=== PATIENT | male | born 1960 | race Caucasian/White ===

== ENCOUNTER 2018-07-24 15:10 | Inpatient (IN) | payer MEDICAID ==
[~2018-07-24] VITALS: Ht 180.3 cm; Wt 77.8 kg
[2018-07-24 15:21] VITALS: Ht 180.3 cm; Wt 77.8 kg
[2018-07-24 16:02] LABS: BASOPHIL % 0.6 % (0-2); PLATELET COUNT 244 x10^3mcL (130-400); RED CELL DISTRIBUTION WIDTH 13.8 % (11.5-14.5)
[2018-07-24 16:08] LABS: CALCIUM 8.5 mg/dL (8.5-10.1); CARBON DIOXIDE 24.8 mmol/L (21-32); CHLORIDE SERUM 104 mmol/L (98-107); CREATININE SERUM 0.7 mg/dL (0.7-1.3); GFR1 > 60 mL/min; GLUCOSE SERUM 77 mg/dL (74-106); POTASSIUM SERUM 4.5 mmol/L (3.5-5.1); SODIUM SERUM 137 mmol/L (136-145)
[2018-07-24 16:12] LABS: UA SPECIFIC GRAVITY <=1.005 (1.005-1.035); microscopic required? YES; urine erythrocyte NEGATIVE (NEGATIVE)
[2018-07-24 16:19] LABS: AMPHETAMINE QUAL UR NONE DETECTED (See below)
[2018-07-24 16:23] LABS: ALKALINE PHOSPHATASE 90 U/L (46-116); ALT/SGPT 27 U/L (16-63); AMYLASE 46 U/L (25-115); AST/SGOT 21 U/L (15-37); BILIRUBIN TOTAL 0.38 mg/dL (0.20-1.00); CHOLESTEROL 192 mg/dL (<200); LIPASE 142 IU/L (73-393); T4(THYROXINE) 5.7 ug/dL (4.7-13.3); TOTAL PROTEIN, SERUM 6.2 g/dL (6.4-8.2)
[2018-07-24 17:04] LABS: ALBUMIN 2.9 g/dL (3.4-5.0); HDL CHOLESTEROL 67 mg/dL (40-60)
[2018-07-24 19:48] LABS: T3 TOTAL 1.29 ng/mL
[2018-07-24 19:50] LABS: CHOLESTEROL/HDL RATIO 2.8; MAGNESIUM 2.1 mg/dL (1.8-2.4); PHOSPHOROUS 4.6 mg/dL (2.5-4.9)
[2018-07-24 20:00] VITALS: BP 138/92
[2018-07-24 20:04] VITALS: BP 126/84
[2018-07-24 20:24] LABS: FREE T4 0.78 ng/dL (0.76-1.46); FREE THYROXINE INDEX 1.6 ug/dL (1.4-4.5); T4(THYROXINE) 4.8 ug/dL (4.7-13.3)
[2018-07-25 05:44] VITALS: BP 131/86
[2018-07-25 06:58] LABS: CALCIUM 8.7 mg/dL (8.5-10.1); CARBON DIOXIDE 27.2 mmol/L (21-32); CHLORIDE SERUM 105 mmol/L (98-107); CREATININE SERUM 0.7 mg/dL (0.7-1.3); GFR1 > 60 mL/min; GLUCOSE SERUM 113 mg/dL (74-106); PHOSPHOROUS 5.2 mg/dL (2.5-4.9); POTASSIUM SERUM 4.8 mmol/L (3.5-5.1); SODIUM SERUM 139 mmol/L (136-145)
[2018-07-25 07:20] LABS: BASOPHIL % 0.2 % (0-2); PLATELET COUNT 226 x10^3mcL (130-400); RED CELL DISTRIBUTION WIDTH 13.4 % (11.5-14.5)
[2018-07-25 09:18] VITALS: BP 112/72
[2018-07-25 17:24] VITALS: BP 137/89
[2018-07-25 21:17] VITALS: BP 151/94
[2018-07-26 05:10] VITALS: BP 136/74
[2018-07-26 06:06] LABS: PLATELET COUNT 213 x10^3mcL (130-400); RED CELL DISTRIBUTION WIDTH 14.1 % (11.5-14.5)
[2018-07-26 06:15] LABS: BASOPHIL % 0 % (0-2)
[2018-07-26 06:24] LABS: CALCIUM 8.4 mg/dL (8.5-10.1); CARBON DIOXIDE 24.9 mmol/L (21-32); CHLORIDE SERUM 104 mmol/L (98-107); CREATININE SERUM 0.7 mg/dL (0.7-1.3); GFR1 > 60 mL/min; GLUCOSE SERUM 121 mg/dL (74-106); PHOSPHOROUS 4.4 mg/dL (2.5-4.9); POTASSIUM SERUM 4.3 mmol/L (3.5-5.1); SODIUM SERUM 137 mmol/L (136-145)
[2018-07-26 08:30] VITALS: BP 143/78
[2018-07-26 09:28] VITALS: BP 143/78
[2018-07-26 13:59] VITALS: BP 129/84
[2018-07-26 17:12] VITALS: BP 131/83
[2018-07-26 21:50] VITALS: BP 148/94
[2018-07-27 05:28] VITALS: BP 145/83
[2018-07-27 06:52] LABS: BASOPHIL % 0.1 % (0-2); PLATELET COUNT 219 x10^3mcL (130-400); RED CELL DISTRIBUTION WIDTH 14.5 % (11.5-14.5)
[2018-07-27 07:10] LABS: CALCIUM 8.9 mg/dL (8.5-10.1); CARBON DIOXIDE 28.2 mmol/L (21-32); CHLORIDE SERUM 103 mmol/L (98-107); CREATININE SERUM 0.6 mg/dL (0.7-1.3); GFR1 > 60 mL/min; GLUCOSE SERUM 98 mg/dL (74-106); MAGNESIUM 2.1 mg/dL (1.8-2.4); PHOSPHOROUS 4.7 mg/dL (2.5-4.9); POTASSIUM SERUM 4.3 mmol/L (3.5-5.1); SODIUM SERUM 139 mmol/L (136-145)
[2018-07-27 09:37] VITALS: BP 144/87
[2018-07-27 10:00] VITALS: BP 125/82
[2018-07-27] MEDS ORDERED: PULMICORT180 MCG/Ac INH (13:53)
[2018-07-27] MEDS ORDERED: PREDNISONE50 MG PO (13:54)
[2018-07-27 13:59] VITALS: BP 125/82
== END 2018-07-27 16:05 | disposition home or self-care (01) | DRG 140 ==
LOC: ED 15:10 → MU 18:34 → DU 07-25 20:21
PROVIDERS: Emergency Medicine; Family Medicine; Internal Medicine
DX: J44.1 Chronic obstructive pulmonary disease with (acute) exacerbation (principal); E44.0 Moderate protein-calorie malnutrition; R06.03 Acute respiratory distress; F10.129 Alcohol abuse with intoxication, unspecified; R09.02 Hypoxemia; F91.8 Other conduct disorders; Y90.3 Blood alcohol level of 60-79 mg/100 ml; Z68.22 Body mass index [BMI] 22.0-22.9, adult; F17.210 Nicotine dependence, cigarettes, uncomplicated
CPT/HCPCS: 36600; 83880; 84439; 94150; 99406; G0480; J1956; J2920; J2930; J7030; J7613; J7620; Q0092

== ENCOUNTER 2018-07-31 14:17 | Emergency (ER) | payer MEDICAID ==
[~2018-07-31] VITALS: Ht 182.9 cm; Wt 78.0 kg
[~2018-07-31 14:17] MED LIST: PREDNISONE50 MG PO; PULMICORT180 MCG/Ac INH
[2018-07-31 14:27] VITALS: Ht 182.9 cm; Wt 78.0 kg
[2018-07-31 14:48] LABS: BASOPHIL % 0.4 % (0-2); PLATELET COUNT 313 x10^3mcL (130-400); RED CELL DISTRIBUTION WIDTH 13.9 % (11.5-14.5)
[2018-07-31 14:54] LABS: CALCIUM 8.3 mg/dL (8.5-10.1); CHLORIDE SERUM 101 mmol/L (98-107); CREATININE SERUM 0.7 mg/dL (0.7-1.3); GFR1 > 60 mL/min; GLUCOSE SERUM 102 mg/dL (74-106); POTASSIUM SERUM 4.5 mmol/L (3.5-5.1); SODIUM SERUM 136 mmol/L (136-145)
[2018-07-31 15:00] LABS: ALKALINE PHOSPHATASE 73 U/L (46-116); ALT/SGPT 38 U/L (16-63); AST/SGOT 22 U/L (15-37); BILIRUBIN TOTAL 0.4 mg/dL (0.20-1.00); TOTAL PROTEIN, SERUM 6.6 g/dL (6.4-8.2)
[2018-07-31 15:01] LABS: ALBUMIN 3.2 g/dL (3.4-5.0)
[2018-07-31 18:02] VITALS: BP 144/82
== END 2018-07-31 18:38 | disposition home or self-care (01) ==
LOC: ED 14:17
PROVIDERS: Emergency Medicine
DX: J44.1 Chronic obstructive pulmonary disease with (acute) exacerbation (principal); F17.210 Nicotine dependence, cigarettes, uncomplicated; Z88.5 Allergy status to narcotic agent
CPT/HCPCS: 83880; J7030; J7613; J7620; Q0092

== ENCOUNTER 2018-08-28 13:52 | Inpatient (IN) | payer MEDICAID ==
[~2018-08-28] VITALS: Ht 180.3 cm; Wt 78.2 kg
[2018-08-28 15:38] LABS: CALCIUM 8.8 mg/dL (8.5-10.1); CARBON DIOXIDE 31.3 mmol/L (21-32); CHLORIDE SERUM 99 mmol/L (98-107); CREATININE SERUM 0.9 mg/dL (0.7-1.3); GFR1 > 60 mL/min; GLUCOSE SERUM 87 mg/dL (74-106); POTASSIUM SERUM 4.1 mmol/L (3.5-5.1); SODIUM SERUM 134 mmol/L (136-145)
[2018-08-28 15:39] LABS: BASOPHIL % 0.3 % (0-2); PLATELET COUNT 254 x10^3mcL (130-400); RED CELL DISTRIBUTION WIDTH 13.1 % (11.5-14.5)
[2018-08-28 15:45] LABS: ALBUMIN 3.4 g/dL (3.4-5.0); ALKALINE PHOSPHATASE 80 U/L (46-116); ALT/SGPT 22 U/L (16-63); AST/SGOT 17 U/L (15-37); BILIRUBIN TOTAL 0.4 mg/dL (0.20-1.00); HDL CHOLESTEROL 47 mg/dL (40-60); TOTAL PROTEIN, SERUM 6.6 g/dL (6.4-8.2)
[2018-08-28 15:46] LABS: CHOLESTEROL 239 mg/dL (<200)
[2018-08-28 16:44] LABS: microscopic required? NO
[2018-08-28] MEDS ORDERED: PROAIR HFA8.5 GM IH (16:44)
[2018-08-28] MEDS ORDERED: BACLOFEN20 MG PO (16:45)
[2018-08-28 16:55] LABS: UA SPECIFIC GRAVITY <=1.005 (1.005-1.035); urine erythrocyte NEGATIVE (NEGATIVE)
[2018-08-28 16:56] LABS: MAGNESIUM 1.9 mg/dL (1.8-2.4); PHOSPHOROUS 4.5 mg/dL (2.5-4.9)
[2018-08-28 17:03] LABS: T3 TOTAL 1.01 ng/mL
[2018-08-28 17:04] LABS: FREE T4 0.86 ng/dL (0.76-1.46); FREE THYROXINE INDEX 2.1 ug/dL (1.4-4.5); T4(THYROXINE) 6.7 ug/dL (4.7-13.3)
[2018-08-28 17:11] LABS: AMPHETAMINE QUAL UR NONE DETECTED (See below)
[2018-08-28 17:36] VITALS: BP 141/83
[2018-08-28 17:45] VITALS: BP 141/91
[2018-08-28 17:48] VITALS: Ht 180.3 cm; Wt 78.2 kg
[2018-08-28 20:27] VITALS: BP 125/89
[2018-08-29 04:49] VITALS: BP 131/79
[2018-08-29 06:55] LABS: BASOPHIL % 0.2 % (0-2); PLATELET COUNT 229 x10^3mcL (130-400)
[2018-08-29 07:09] LABS: CHLORIDE SERUM 103 mmol/L (98-107); CREATININE SERUM 0.7 mg/dL (0.7-1.3); GFR1 > 60 mL/min; GLUCOSE SERUM 113 mg/dL (74-106); PHOSPHOROUS 5.6 mg/dL (2.5-4.9); POTASSIUM SERUM 4.4 mmol/L (3.5-5.1); SODIUM SERUM 137 mmol/L (136-145)
[2018-08-29 09:26] VITALS: BP 117/74
[2018-08-29 12:58] VITALS: BP 123/78
[2018-08-29 17:09] VITALS: BP 121/77
[2018-08-29 20:45] VITALS: BP 116/73
[2018-08-30 05:46] VITALS: BP 136/85
[2018-08-30 06:14] LABS: CALCIUM 8.5 mg/dL (8.5-10.1); CARBON DIOXIDE 26.4 mmol/L (21-32); CHLORIDE SERUM 103 mmol/L (98-107); CREATININE SERUM 0.7 mg/dL (0.7-1.3); GFR1 > 60 mL/min; GLUCOSE SERUM 103 mg/dL (74-106); PHOSPHOROUS 5.2 mg/dL (2.5-4.9); PLATELET COUNT 232 x10^3mcL (130-400); POTASSIUM SERUM 4.3 mmol/L (3.5-5.1); SODIUM SERUM 136 mmol/L (136-145)
[2018-08-30 06:37] LABS: BASOPHIL % 0 % (0-2)
[2018-08-30 09:19] VITALS: BP 113/72
[2018-08-30 17:56] VITALS: BP 143/87
[2018-08-30 20:53] VITALS: BP 132/78
[2018-08-31 05:46] VITALS: BP 147/82
[2018-08-31 07:07] LABS: CALCIUM 8.1 mg/dL (8.5-10.1); CARBON DIOXIDE 25.4 mmol/L (21-32); CHLORIDE SERUM 104 mmol/L (98-107); CREATININE SERUM 0.7 mg/dL (0.7-1.3); GFR1 > 60 mL/min; GLUCOSE SERUM 85 mg/dL (74-106); MAGNESIUM 1.9 mg/dL (1.8-2.4); PHOSPHOROUS 4.4 mg/dL (2.5-4.9); POTASSIUM SERUM 3.7 mmol/L (3.5-5.1); SODIUM SERUM 139 mmol/L (136-145)
[2018-08-31 07:19] LABS: BASOPHIL % 0.1 % (0-2); PLATELET COUNT 209 x10^3mcL (130-400)
[2018-08-31 09:13] VITALS: BP 117/75
[2018-08-31] MEDS ORDERED: LIPI10 PO (10:25)
[2018-08-31] MEDS ORDERED: ZES5 PO (10:25)
[2018-08-31 10:49] VITALS: BP 117/75
[2018-08-31 14:47] VITALS: BP 135/78
== END 2018-08-31 14:51 | disposition home or self-care (01) | DRG 140 ==
LOC: ED 13:52 → MU 16:02 → DU 16:02 → MU 17:24 → DU 18:00
PROVIDERS: Emergency Medicine; Family Medicine; Internal Medicine
DX: J44.1 Chronic obstructive pulmonary disease with (acute) exacerbation (principal); J96.01 Acute respiratory failure with hypoxia; E87.2 Acidosis; E87.1 Hypo-osmolality and hyponatremia; E78.5 Hyperlipidemia, unspecified; I10 Essential (primary) hypertension; F17.210 Nicotine dependence, cigarettes, uncomplicated; Z68.24 Body mass index [BMI] 24.0-24.9, adult; Z59.0 Homelessness
CPT/HCPCS: 36600; 83880; 84439; 90658; 90732; 94150; 99406; J1644; J1956; J2920; J2930; J7030; J7613; J7620; J7626; J7644; Q0092

== ENCOUNTER 2019-07-05 21:01 | Emergency (ER) | payer BC ==
[~2019-07-05] VITALS: Ht 177.8 cm; Wt 83.9 kg
[~2019-07-05 21:01] MED LIST changes: +BACLOFEN20 MG PO; +LIPI10 PO; +PROAIR HFA8.5 GM IH; +ZES5 PO
[2019-07-05 21:07] VITALS: Ht 177.8 cm; Wt 83.9 kg
[2019-07-05 21:28] VITALS: BP 121/70
== END 2019-07-05 21:28 | disposition left against medical advice (07) ==
LOC: ED 21:01
DX: R06.02 Shortness of breath (principal); J44.9 Chronic obstructive pulmonary disease, unspecified; I10 Essential (primary) hypertension; Z88.5 Allergy status to narcotic agent
CPT/HCPCS: G0480; J1630; J7512

== ENCOUNTER 2019-07-06 02:25 | Inpatient (IN) | payer BC ==
[~2019-07-06] VITALS: Ht 177.8 cm; Wt 85.9 kg
[2019-07-06] VITALS (7 sets, daily range): BP systolic 130–159; BP diastolic 78–108; Ht 177.8 cm; Wt 85.9 kg
--- NOTE | 2019-07-06 02:35 | NUR ---
PT BROUGHT TO ED BY [facility] AND [employer]. PT WAS SEEN EARLIER IN THE ED FOR SOB BUT ELOPED FROM ED WITHOUT TREATMENT. PER MEDICS, AFTER PT LEFT THE ED EARLIER HE WENT TO A LOCAL GAS STATION WHERE HIS SYMPTOMS CONTINUED AND GOT PROGRESSIVELY WORSE. PT STATES THAT HE RAN OUT OF HIS ALBUTEROL X1 WK AGO AND WAS SEEN AT AN URGENT CARE IN [place]. PT WAS GIVEN AN RX FOR PREDNISONE AND DISCHARGED. PT STATES THAT FOR THE LAST 2 DAYS HE HAS BEEN EXPERIENCING INCREASED SOB AND PRODUCTIVE COUGH. PT STATES THAT HE HAS HAD A DRY COUGH FOR SEVERAL YEARS DUE TO COPD BUT BECAME PRODUCTIVE THIS WEEK. PT NOTED WITH YOSELIN BILATERALLY. PER MEDICS HE WAS SINUS TACHYCARDIA ON THE MONITOR. IV ESTABLISHED BY MEDICS EN ROUTE. PT O2 SAT 94% ON RA, ALBUTEROL/ATROVENT BREATHING TX INITIATED BY MEDICS. RT CALLED TO BEDSIDE FOR TX UPON ARRIVAL. DR HI AT BEDSIDE FOR MSE. PT AOX4, RESP EVEN AND UNLABORED, NO ACUTE DISTRESS NOTED. PT PLACED ON FULL CM IN VIEW OF NURSE'S STATION.
[2019-07-06 02:47] LABS: BASOPHIL % 1.2 % (0-2); PLATELET COUNT 277 x10^3mcL (130-400)
[2019-07-06 02:54] LABS: CALCIUM 7.8 mg/dL (8.5-10.1); CARBON DIOXIDE 26.6 mmol/L (21-32); CHLORIDE SERUM 103 mmol/L (98-107); CREATININE SERUM 0.9 mg/dL (0.7-1.3); GFR1 > 60 mL/min; GLUCOSE SERUM 84 mg/dL (74-106); POTASSIUM SERUM 3.9 mmol/L (3.5-5.1); SODIUM SERUM 142 mmol/L (136-145)
[2019-07-06 02:56] LABS: RED CELL DISTRIBUTION WIDTH 15.8 % (11.5-14.5)
[2019-07-06 03:01] LABS: ALBUMIN 3.4 g/dL (3.4-5.0); ALKALINE PHOSPHATASE 73 U/L (46-116); ALT/SGPT 19 U/L (16-63); AST/SGOT 15 U/L (15-37); BILIRUBIN TOTAL 0.24 mg/dL (0.20-1.00); TOTAL PROTEIN, SERUM 6.4 g/dL (6.4-8.2)
--- NOTE | 2019-07-06 03:04 | NUR ---
UNABLE TO OBTAIN DOSES OF HOME MEDICATIONS.
--- NOTE | 2019-07-06 03:10 | NUR ---
PER PT REQUEST SPOKE TO [facility] IN [place] WHERE PT WAS STAYING PRIOR TO TRANSPORT TO HOSPITAL. ATTEMPTING TO LOCATE PT BELONGINGS WHICH HE STATES WERE LEFT IN THE HOTEL ROOM. PER LICENSED CLINICAL PSYCHOLOGIST, SHE WILL CALL BACK AFTER CHECKING THE ROOM. [phone] VENKAT RM [id number]
--- NOTE | 2019-07-06 03:16 | NUR ---
SPOKE WITH LISANDRO FROM [place] [employer], SHE WILL FOLLOW UP ON PT REQUEST AND SEND OUT AN OFFICER SOON POSSIBLE.
--- NOTE | 2019-07-06 03:17 | NUR ---
SPOKE WITH MURALI AT [facility], PER MURALI PT BELONGINGS STILL IN THE ROOM. TOMORROW AT 1100 AM (CHECK OUT), ERNESTO WILL GATHER HIS BELONGINGS AND MOVE THEM TO THE SUPERVISOR TUMBLING AND ROLLING WHERE PT CAN WET PROCESS MILLER HIS BELONGINGS UPON DISCHARGE. PT MADE AWARE.
--- NOTE | 2019-07-06 03:18 | NUR ---
LISANDRO FROM [place] [employer] CALLED TO UPDATE ME ON SITUATION. REPORT WAS FILED AROUND 1300 YESTERDAY SO THEY WILL NOT BE SENDING AN OFFICER TO [facility]. PROVIDED WITH CASE #[id number] WHICH PT CAN FOLLOW UP AT [place] [employer] ST[facility] UPON DISCHARGE. PT PROVIDED WITH THIS CASE NUMBER.
--- NOTE | 2019-07-06 03:55 | NUR ---
PT REPORT CALLED TO BERNIE BYRNES TO ASSUME PT CARE.
--- NOTE | 2019-07-06 04:05 | NUR ---
PT TRANSFERRED TO 235B BY [facility] BY MYSELF AND DEISY EMT. PT ON MONITOR FOR TRANSPORT. PT AOX4, RESP EVEN AND UNLABORED, NO ACUTE DISTRESS NOTED. PT ACCEPTED BY BERNIE BYRNES TO ASSUME PT CARE. PT TRANSFERRED FROM [facility] TO BED WITHOUT INCIDENT.
[2019-07-06 04:23] LABS: CALCIUM 7.7 mg/dL (8.5-10.1); CARBON DIOXIDE 27.4 mmol/L (21-32); CHLORIDE SERUM 105 mmol/L (98-107); CREATININE SERUM 0.8 mg/dL (0.7-1.3); GFR1 > 60 mL/min; GLUCOSE SERUM 87 mg/dL (74-106); MAGNESIUM 2.2 mg/dL (1.8-2.4); PHOSPHOROUS 3.3 mg/dL (2.5-4.9); POTASSIUM SERUM 3.7 mmol/L (3.5-5.1); SODIUM SERUM 143 mmol/L (136-145)
[2019-07-06 04:25] LABS: CHOLESTEROL/HDL RATIO 2.7
[2019-07-06 04:31] LABS: BASOPHIL % 0.4 % (0-2); PLATELET COUNT 229 x10^3mcL (130-400)
--- NOTE | 2019-07-06 04:44 | NUR ---
RECEIVED FROM ER TRANSPORTED VIA [facility]. AWAKE, SOMEWHAT DROWSY. ORIENTED TO NAME, PLACE, TIME AND SITUATION. SPEECH CLEAR AND APPROPRIATE. ABLE TO MAKE NEEDS KNOWN. BREATHING EVEN AND UNLABORED ON ROOM AIR, NO WHEEZING HEARD ON AUSCULTATION, LUNG SOUNDS DIMINISHED TO BASES, O2 SAT 89%. INFORMED RESP THERAPIST WHO STATED OK NOT TO PUT ON O2 PT IS COPD AND IN NO ACUTE RESP DISTRESS. RESP THERAPIST STATED HE WILL COME UP TO SEE PT. PT ABLE TO COMPLETE SENTENCES WITHOUT DIFFICULTY. CALM AND GENERALLY COOPERATIVE WITH CARE BUT REFUSED PHYSICAL EXAMINATION OF BACK AT THIS TIME. STATED HE WANTS TO SLEEP SINCE HE IS TIRED. SALINE LOCK TO LEFT AC, FLUSHED WELL, FREE FROM SWELLING OR ERYTHEMA TO IV SITE. INSTRUCTED ON USE OF CALL LIGHT TO CALL FOR ASSISTANCE, PLACED WITHIN EASY REACH.
--- NOTE | 2019-07-06 04:47 | NUR ---
INSTRUCTED PT NEED URINE AND SPUTUM SPECIMEN, VERBALIZED UNDERSTANDING.
[2019-07-06 05:04] LABS: RED CELL DISTRIBUTION WIDTH 15.6 % (11.5-14.5)
--- NOTE | 2019-07-06 06:33 | NUR ---
MARIPOSA NEIL STATED TO PUT PT ON 1 - 2 LITER OF O2 VIA NC. PLACED PT ON O2 1LPM VIA NC. O2 SAT 92%.
--- NOTE | 2019-07-06 07:10 | NUR ---
eyes closed, easily awakened. breathing even and unlabored on 1lpm of o2 via nc. endorsed to nurse palomares
--- NOTE | 2019-07-06 07:19 | NUR ---
URINE SPECIMEN SENT TO LAB
--- NOTE | 2019-07-06 07:35 | NUR ---
RECEIVED IN NO ACUTE RESP. DISTRESS. AWAKE AND ALERT. VS WNL. NO C/O PAIN OR DISCOMFORT AT THIS TIME. CALL LIGHT WITHIN REACH. WILL CONTINUE WITH PLAN OF CARE.
[2019-07-06 07:54] LABS: microscopic required? NO
[2019-07-06 08:02] LABS: urine erythrocyte NEGATIVE (NEGATIVE)
[2019-07-06 08:19] LABS: AMPHETAMINE QUAL UR NONE DETECTED (See below)
--- NOTE | 2019-07-06 16:44 | NUR ---
DOSING ON AND OFF, NO DISTRESS NOTED. DENIES ANY DISCOMFORT.
--- NOTE | 2019-07-06 18:19 | NUR ---
PT REMAINS IN NO DISTRESS, AWAKE AND ALERT. NO CHANGES IN VS. NO C/O PAIN OR DISCOMFORT. HL PATENT. CALL LIGHT WITHIN REACH. WILL BE ENDORSED TO INCOMING SHIFT.
--- NOTE | 2019-07-06 19:12 | NUR ---
AWAKE AND ALERT, ORIENTED TO NAME, PLACE, TIME AND SITUATION. WATCHING TV. BREATHING EVEN AND UNLABORED ON 1LPM OF O2 VIA NC. FACE APPEARS SOMEWHAT FLUSHED, BUT DENIES HAVING ITCHINESS. LAYING FLAT ON BED, STATED THIS IS WAHT HE PREFERS. SALINE LOCK TO LEFT AC. FLUSHED WELL. CALL LIGHT WITHIN EASY REACH. ASKED FOR WATER, PROVIDED. STATED HE IS DUE FOR BREATHING TREATMENT, CALLED RESP THERAPIST WHO STATED HE WILL COME UP.
--- NOTE | 2019-07-06 21:52 | NUR ---
EYES CLOSED, BREATHING EVEN AND UNLABORED. CALL LIGHT WITHIN EASY REACH
--- NOTE | 2019-07-06 23:34 | NUR ---
eyes closed, breathing unlabored. call light within easy reach.
[2019-07-07 04:47] VITALS: BP 112/56
--- NOTE | 2019-07-07 06:15 | NUR ---
EYES CLOSED, EASILY AWAKENED. BREATHING EVEN AND UNLABORED. CALL LIGHT WITHIN EASY REACH. SINUS RHYTHM ON TELE, HR 64/MIN.
--- NOTE | 2019-07-07 06:18 | NUR ---
IV SITE FREE FROM ERYTHEMA OR SWELLING.
[2019-07-07 07:13] LABS: BASOPHIL % 0.1 % (0-2); PLATELET COUNT 245 x10^3mcL (130-400)
--- NOTE | 2019-07-07 07:20 | NUR ---
EYES CLOSED, BREATHING EVEN AND UNLABORED. CALL LIGHT WITHIN EASY REACH. ENDORSED TO NURSE JULIA
[2019-07-07 07:42] LABS: RED CELL DISTRIBUTION WIDTH 15.6 % (11.5-14.5)
[2019-07-07 07:43] LABS: CALCIUM 8.1 mg/dL (8.5-10.1); CARBON DIOXIDE 25.6 mmol/L (21-32); CHLORIDE SERUM 103 mmol/L (98-107); CREATININE SERUM 0.7 mg/dL (0.7-1.3); GFR1 > 60 mL/min; GLUCOSE SERUM 115 mg/dL (74-106); POTASSIUM SERUM 4.1 mmol/L (3.5-5.1); SODIUM SERUM 140 mmol/L (136-145)
--- NOTE | 2019-07-07 08:40 | NUR ---
AT 0720 - RECEIVED PATIENT FROM NIGHT NURSE. PATIENT SLEEPING. RESPIRATIONS REGULAR. CONTINUING TO MONITOR. AT 0745 - PATIENT AWAKE, ALERT AND ORIENTED. REQUESTING BREATHING TREATMENT. CALLED RT. COARSE BREATH SOUNDS TASHIA. PATIENT HAS A PRODUCTIVE COUGH. PROVIDED WITH CONTAINER FOR SPUTUM COLLECTION. CURRENTLY ON O2 VIA NC AT 1L/MIN AT 0750 - RT AT BEDSIDE. AT 0825 - PATIENT RESTING QUIETLY. NO RESPIRATORY DIFFICULTIES NOTED.
[2019-07-07 09:00] VITALS: BP 117/63
[2019-07-07 13:00] VITALS: BP 125/78
--- NOTE | 2019-07-07 13:24 | NUR ---
AT 1235 - SPUTUM COLLECTED AND TAKEN TO LAB FOR C & S. PATIENT ENCOURAGED TO USE INSENTIVE SPIROMETER. TOLERATING REGULAR DIET.
--- NOTE | 2019-07-07 15:27 | NUR ---
STATUS CHANGED TO MED-SURG. PATIENT TAKEN OFF CARDIAC MONITORING.
[2019-07-07 17:43] VITALS: BP 124/83
--- NOTE | 2019-07-07 18:53 | NUR ---
AWAKE, ALERT AND ORIENTED. VSS AND WNL. AFEBRILE. RESPIRATIONS REGULAR. PRODUCTIVE COUGH. EXPECTORATING WITHISH YELLOW SPUTUM. EATING A REGULAR DIET. IV SALINE LOCKED. WILL ENDORSE CARE TO NIGHT NURSE.
--- NOTE | 2019-07-07 19:30 | NUR ---
RECIEVED PATIENT AT START OF SHIFT A/O X4. MED-SURG. DENEIS PAIN. NO SOB ON 1L NC. LUNGS HAVE SLIGHT EXPIRATORY WHEEZE BILATERALLY. PATIENT IS REQUESTING A BREATHING TREATMENT. RT PAGED. IS AT BEDSIDE. PATIENT ENCOURAGED TO USE 1O TIME AN HOUR. IV TO LAC IS SALINE LOCKED AND PATENT. BED LOCKED AND IN LOWEST POSIITON. CALL LIGTH AND BEDSDIE TABLE WITHIN REACH.
[2019-07-07 20:58] VITALS: BP 142/85
--- NOTE | 2019-07-08 01:05 | NUR ---
PATIENT IS AWAKE, WATCHING TV. NO APPARENT DISTRESS. DENIES PAIN. CALL LIGHT WITHIN REACH.
[2019-07-08 05:27] VITALS: BP 110/60
--- NOTE | 2019-07-08 06:49 | NUR ---
PATIENT IS RESTING IN BED COMFORTABLEY. IN NO DISTRESS. NO COMPLAINT OF PAIN. NO SOB ON RA. IV SALINE LOCKED AND PATENT. BED LOCKED AND IN LOWEST POSIITON. CALL LIGHT WITHIN REACH. WILL ENDORSE CARE TO DAYSHIFT NURSE.
[2019-07-08 07:09] LABS: PLATELET COUNT 222 x10^3mcL (130-400)
[2019-07-08 07:14] LABS: BASOPHIL % 0 % (0-2); RED CELL DISTRIBUTION WIDTH 15.7 % (11.5-14.5)
[2019-07-08 07:18] LABS: CALCIUM 8.3 mg/dL (8.5-10.1); CARBON DIOXIDE 24.2 mmol/L (21-32); CHLORIDE SERUM 103 mmol/L (98-107); CREATININE SERUM 0.7 mg/dL (0.7-1.3); GFR1 > 60 mL/min; GLUCOSE SERUM 98 mg/dL (74-106); MAGNESIUM 2.3 mg/dL (1.8-2.4); POTASSIUM SERUM 4.5 mmol/L (3.5-5.1); SODIUM SERUM 138 mmol/L (136-145)
--- NOTE | 2019-07-08 07:25 | NUR ---
RECEIVED PATIENT FROM NIGHT NURSE. AWAKE, ALERT. RESPIRATIONS REGULAR. ON SUPPLIMENTAL O2 VIA NC AT 2L/MIN. IV SALINE LOCKED. WAITING FOR BREAKFAST.
[2019-07-08 08:15] VITALS: BP 115/60
--- NOTE | 2019-07-08 12:18 | NUR ---
PATIENT AWARE OF PLAN TO WEAN OFF SUPPLIMENTAL O2. SAYS THAT HE IS USING IT ON NEED BASIS ALREADY.
[2019-07-08 16:38] VITALS: BP 121/68
--- NOTE | 2019-07-08 17:25 | NUR ---
PHYSICAL THERAPY NOTE ATTEMPTED FOR PHYSICAL THERAPY EVAL REQUESTED; PATIENT REFUSED TO PARTICIPATE AT THIS TIME.
--- NOTE | 2019-07-08 18:54 | NUR ---
PATIENT TOLERATING PERIODS WITHOUT SUPPLIMENTAL O2. VSS. AFEBRILE. IV SALINE LOCK. EATING A REGULAR DIET. GOOD APPETITE. WILL ENDORSE CARE TO NIGHT NURSE.
--- NOTE | 2019-07-08 19:10 | NUR ---
REC'D PT FROM DAY NURSE. PT RESTING IN BED. AAOX4, SPEECH CLEAR, FOLLOWS COMMANDS. MED SURG, NO TELE. DENIES CP, DIZZINESS, OR PALPITATIONS. DENIES RESP DISTRESS OR SOB. BREATHING EVEN/UNLABORED ON 1L O2 VIA NC, SPO2 95%. O2 PRN. PT STATES HE WAS OOB ABOUT 10 MIN AGO AND FELT SOB SO PUT ON NC. NO EDEMA NOTED. ABD SOFT/ROUND/NONTENDER. DENIES N/V. VOIDING FREELY USING URINAL. GEN WEAKNESS. PHYSICAL THEARPY. USUALLY AMB BY SELF. BUE AND L SIDED FACIAL ECCHYMOSIS. IV TO LAC FLUSHED AND LEAKING. IV D/C'D WITH CATHETER INTACT. PT STATES HE WOULD LIKE TO WAIT A FEW HOURS BEFORE NEXT INSERTION. CALL LIGHT WITHIN REACH, BED AT LOWEST POSITION. WILL CONTINUE TO MONITOR.
[2019-07-08 20:53] VITALS: BP 121/71
--- NOTE | 2019-07-08 23:53 | NUR ---
PT RESTING IN BED WITH EYES CLOSED. NO SIGNS OF DISTRESS NOTED. BREATHING EVEN/UNLABORED ON 1L O2 VIA NC. CALL LIGHT WITHIN REACH, BED AT LOWEST POSITION. WILL CONTINUE TO MONITOR.
--- NOTE | 2019-07-09 00:21 | NUR ---
SPOKE TO DR. SIDDIQI. MADE AWARE OF RESP GRAM STAIN RESULTS: MANY GRAM (+) COCCI AND MODERATE GRAM (+) BACILLI WELL PRELIMINARY RESP CX RESULTS OF NORMAL RESP JAIMEE. NO CHANGES IN ORDERS AT THIS TIME.
--- NOTE | 2019-07-09 05:27 | NUR ---
PT RESTING IN BED WITH EYES CLOSED. SLEEPING. NO SIGNS OF DISTRESS NOTED. BREATHING EVEN/UNLABORED ON RA, SPO2 92%. NO SIGNIFICANT CHANGES DURING SHIFT. CALL LIGHT WITHIN REACH, BED AT LOWEST POSITION. WILL ENDORSE TO DAY NURSE.
[2019-07-09 06:08] VITALS: BP 100/52
[2019-07-09 07:24] LABS: BASOPHIL % 0.1 % (0-2); PLATELET COUNT 210 x10^3mcL (130-400)
[2019-07-09 07:28] LABS: CALCIUM 7.6 mg/dL (8.5-10.1); CARBON DIOXIDE 27.4 mmol/L (21-32); CHLORIDE SERUM 104 mmol/L (98-107); CREATININE SERUM 0.7 mg/dL (0.7-1.3); GFR1 > 60 mL/min; GLUCOSE SERUM 96 mg/dL (74-106); POTASSIUM SERUM 4.3 mmol/L (3.5-5.1); SODIUM SERUM 139 mmol/L (136-145)
[2019-07-09 07:37] LABS: RED CELL DISTRIBUTION WIDTH 15.6 % (11.5-14.5)
--- NOTE | 2019-07-09 08:04 | NUR ---
AT 0715 - RECEIVED PATIENT FROM NIGHT NURSE. AWAKE, ALERT AND ORIENTED. RESPIRATIONS REGULAR WITH SOB ON EXERTION. PATIENT WAS OFF SUPPLIMENTAL O2 BUT AFTER WALKING IN ROOM HE FELT SOB AND SAID HE REQUIRED O2 AND BREATHING TREATMENT. AT 0800 - SEEN BY BRENNAN LIANG. CONTINUE TO WEAN OFF O2. STIL NEEDS PT ADALID.
[2019-07-09 09:21] VITALS: BP 117/68
--- NOTE | 2019-07-09 10:08 | NUR ---
PATIENT REMAIN ON SUPPLIMENTAL O2 AT 2L. SYAS THAT HE IS CURRENTLY NOT ABLE TO TOLERATED BEING ON ROOM AIR.
--- NOTE | 2019-07-09 12:38 | NUR ---
SEEN BY DR COLE. RECEIVED ORDER FOR CHEST X-RAY TODAY. CONTINUE WITH IV SOLUMEDROL.
--- NOTE | 2019-07-09 13:20 | NUR ---
PATIENT BACK IN ROOM FOLLOWING CHEST X-RAY.
--- NOTE | 2019-07-09 16:29 | NUR ---
DR COLE PER PHONE - NOTIFIED OF CHEST X-RAY RESULT REQUESTED. NO CHANGE IN ORDERS.
[2019-07-09 17:10] VITALS: BP 131/85
--- NOTE | 2019-07-09 18:15 | NUR ---
RESTING QUIETLY. VSS. AFEBRILE. RESPIRATIONS REGULAR BUT PATIENT USING SUPPLIMENTAL O2 AT 2L/MIN. IV IN LFA INFILTRATED. CATHETER REMOVED INTACT AND IV RESITED IN LFA. SALINE LOCKED AFTER ADMINISTRATION OF SCHEDULED SOLUMEDROL. WILL ENDORSE CARE TO NIGHT NURSE.
--- NOTE | 2019-07-09 19:25 | NUR ---
REC'D PT FROM DAY NURSE. PT SITTING AT THE SIDE OF THE BED. AAOX4, SPEECH CLEAR, FOLLOWS COMMANDS. MED SURG, NO TELE. DENIES CP, DIZZINESS, OR PALPITATIONS. REPORTS DYSPNEA UPON EXERTION. PT WAS JUST IN THE BATHROOM AND C/O MILD SOB. BREATHING EVEN/UNLABORED ON 2L O2 VIA NC, SPO2 96%. RT PROTOCOL. NO EDEMA NOTED. L SIDED FACIAL AND BUE ECCHYMOSIS. ABD SOFT/ROUND. DENIES ABD PAIN, TENDERNESS, OR N/V. VOIDING FREELY. GEN WEAKNESS. AMBULATORY. PT. DENIES PAIN AT THIS TIME. IV TO LFA FLUSHED AND PATENT, SITE WNL. CALL LIGHT WITHIN REACH, BED AT LOWEST POSITION. WILL CONTINUE TO MONITOR.
[2019-07-09 20:50] VITALS: BP 126/83
--- NOTE | 2019-07-10 00:10 | NUR ---
PT AWAKE AND RESTING IN BED WATCHING TV. NO SIGNS OF DISTRESS NOTED. BREATHING EVEN/UNLABORED ON RA, SPO2 95%. CALL LIGHT WITHIN REACH, BED AT LOWEST POSITION. WILL CONTINUE TO MONITOR.
[2019-07-10 05:02] VITALS: BP 132/68
--- NOTE | 2019-07-10 05:38 | NUR ---
PT RESTING IN BED WITH EYES CLOSED. APPEARS TO BE SLEEPING. NO SIGNS OF DISTRESS NOTED. BREATHING EVEN/UNLABORED ON RA, SPO2 92%. NO SIGNIFICANT CHANGES DURING SHIFT. CALL LIGHT WITHIN REACH, BED AT LOWEST POSITION. WILL ENDORSE TO DAY NURSE.
[2019-07-10 06:23] LABS: CALCIUM 8.2 mg/dL (8.5-10.1); CARBON DIOXIDE 27.6 mmol/L (21-32); CHLORIDE SERUM 103 mmol/L (98-107); CREATININE SERUM 0.8 mg/dL (0.7-1.3); GFR1 > 60 mL/min; GLUCOSE SERUM 100 mg/dL (74-106); POTASSIUM SERUM 4.2 mmol/L (3.5-5.1); SODIUM SERUM 138 mmol/L (136-145)
--- NOTE | 2019-07-10 07:30 | NUR ---
PT ENDORSE TO ME THIS MORNING, AA/O X4 BREATHING EVEN AND UNLABORED ON RA, NO ACUTE RESP DISTRESS OR SOB NOTED. MEDSURG, DENIES ANY CP OR PRESSURE. BOWEL SOUNDS ACTIVE IN ALL FOUR QUADS. VOIDS FREELY/URINAL AT BEDSIDE. BUE DISCOLORATION NOTED AND TO L FACE. IV TO LFA INTACT AND PATENT/ HEPLOCKED. CALL LIGHT IN REACH. BED IN LOW POSITION. WILL CONTINUE TO MONITOR.
[2019-07-10 08:23] LABS: BASOPHIL % 0 % (0-2); PLATELET COUNT 203 x10^3mcL (130-400); RED CELL DISTRIBUTION WIDTH 15.3 % (11.5-14.5)
[2019-07-10 09:40] VITALS: BP 129/72
--- NOTE | 2019-07-10 09:52 | NUR ---
P.T. NOTES ATTEMPTED P.T. EVAL, Pt SLEEPING, WOKE UP, BUT KEPT EYES CLOSED, DECLINED OOB W/ P.T., STATES "I HAVE BEEN AWAKE SINCE 4 AM, I WANT TO SLEEP, PEOPLE HAVE BEEN GOING IN & OUT OF MY ROOM SINCE THEN"; WANTS ICE WATER, LIGHTS OFF, KEPT HEATER ON; APPRECIATIVE; CALL ORTEGA, PHONE, TABLE IN REACH, I.S. IN ROOM; ON ROOM AIR; FF UP TOMORROW IF PARTICIPATIVE.
--- NOTE | 2019-07-10 10:30 | NUR ---
RESPIRATORY: PT REFUSED BREATHING TX AT THIS TIME. PT REFUSED TO WALK FOR HOME O2 EVALUATION. PT JUST WANTS TO SLEEP. PT IN NO DISTRESS AT THIS TIME.
--- NOTE | 2019-07-10 13:00 | NUR ---
PT SITTING UP IN BED HAVING LUNCH, ENCOURAGED PT TO GET UP AND WALK OR SIT UP IN CHAIR. PT STATED "EVERYONE KEEPS COMING IN AND WAKING ME UP" ADVICE THE IMPORTANCE OF SITTING UP IN CHAIR AND AMBULATING. PT REFUSE AT THIS TIME, WILL CONTINUE TO MONITOR AND ECOURAGE AMBULATION.
--- NOTE | 2019-07-10 13:23 | NUR ---
Initial Nutrition Assessment: Jose Jack Bridger 235-B Dx COPD PMHx:COPD and HTN PSHx: None Labs: (07/10) BUN:20H, Ca:8.2L Meds: Colace, Levaquin, Lipitor, Solumedrol, Tylenol, Xopenex, Zestril, Zofran Diet: Regular PO intake since admission: (07/08) B:90% L:95% D:90% (07/09) B:100% L:100% D:100% Ht:70in, 5'10" Wt:189#, 85.927kg BMI:27.2kg/m2 (overweight) Bed scale: 190# IBW:166#, 75kg %IBW:114% UBW: 185-190# Age: 59 y/o male Food Allergies: NKFA Skin: discoloration to BUE Ankur: 20 Edema: none GI: active bowel sounds Last BM:07/09 Per H&P, pt came into the ED with c/o SOB x 1 week. Pt ran out of medications 1 week ago and SOB worsened since then. Per progress note 07/10, pt was noted to be off 02. CARE PROCESS MANAGER wrote order for 02 to be weaned off. Ordered PT eval. Overnight event, pt was walking [place] the [place] and became SOB/ Plan for discharge if off 02. Home 02 eval was ordered. During visit, pt was seen lying in bed. Pt reports to having a good appetite with no c/o GI issues. Problem with: N/V/D/C: no Problems with: Chewing/Swallowing:No Current appetite: Good Recent wt change: no %wt change:0% Vitamin/Supplement use: no Special diet at home: Regular Physical activity: no Nutrition education given? Yes, low Na nutrition therapy due to pt with past medical history of HTN. Went over foods low in sodium Food-drug interactions? Solumedrol, Education given? Verbal diet education on how it increases BG numbers Estimated Nutritional Needs Based on ideal body weight (75kg) Energy: 1875-2250kcal/day (25-30kcal/kg for maintenance ) Protein:75 g/day (1g/kg for maintenance ) Fluid: 1875-2250mL/day (1 mL/kcal) Nutrition Diagnosis: 1.Overweight related to excessive caloric intake as evidenced by BMI:27.2kg/m2 (overweight). Intervention 1.Recommend continue with Regular diet. BP controlled. Monitor/Evaluate Goal: PO intake at least 75% of estimated needs Monitor: PO intake, Labs, GI function F/U in 7 days as low risk:07/17
--- NOTE | 2019-07-10 13:23 | NUR ---
1.Recommend continue with Regular diet. BP controlled.
[2019-07-10 17:04] VITALS: BP 151/97
--- NOTE | 2019-07-10 17:19 | NUR ---
PT AMB TO THE NURSING STATION AND BACK/ NO SOB OR ACUTE RESP DISTRESS NOTED. LAST SAT CK PT WAS AT 96% RA. WILL CONTINUE TO MONITOR.
--- NOTE | 2019-07-10 18:08 | NUR ---
NO ACUTE CHANGES AT THIS TIME, NO ACUTE RESP DISTRESS OR SOB NOTED, PT REMAINS ON RA SATING AT 96%. ENCOURAGED PT TO SIT UP IN CHAIR, AGREED. DENIES ANY CP OR PRESSSURE.IV TO THE LFA INTACT AND PATENT/ HEPLOCKED. WILL ENDORSE TO INCOMING RN.
--- NOTE | 2019-07-10 19:20 | NUR ---
RECIEVED PT IN NO ACUTE DISTRESS. MED SURG. BREATHING E/U WITH MILD EXPIRATORY WHEEZES ON NC @ 1L. DENIES SOB. DENIES PAIN. SL TO [facility], PATENT. BED IN LOWEST POSITION, 2 SIDE RAILS UP, CALL LIGHT IN REACH. INSTRUCTED TO CALL FOR ASSISTANCE.
[2019-07-10 20:30] VITALS: BP 126/70
--- NOTE | 2019-07-11 03:10 | NUR ---
RESTING WITH EYES CLOSED. BREATHING E/U. NO ACUTE DISTRESS NOTED. WILL CONTINUE TO MONITOR.
[2019-07-11 05:29] VITALS: BP 117/66
[2019-07-11 06:36] LABS: PLATELET COUNT 212 x10^3mcL (130-400)
--- NOTE | 2019-07-11 06:40 | NUR ---
NO ACUTE DISTRESS NOTED. NO ACUTE CHANGES. WILL ENDORSE TO ONCOMING RN.
[2019-07-11 06:51] LABS: BASOPHIL % 0 % (0-2); RED CELL DISTRIBUTION WIDTH 15.6 % (11.5-14.5)
[2019-07-11 06:59] LABS: CALCIUM 7.8 mg/dL (8.5-10.1); CARBON DIOXIDE 29.9 mmol/L (21-32); CHLORIDE SERUM 104 mmol/L (98-107); CREATININE SERUM 0.7 mg/dL (0.7-1.3); GFR1 > 60 mL/min; GLUCOSE SERUM 98 mg/dL (74-106); POTASSIUM SERUM 4.6 mmol/L (3.5-5.1); SODIUM SERUM 139 mmol/L (136-145)
--- NOTE | 2019-07-11 07:30 | NUR ---
RECEIVED PT IN BED A/A/OX4 DENIES TALAMANTES, RESP EVEN AND UNLABORED WITH DIMINISHED BS BILAT. ON RA WITH O2SAT 96%, INTSRUCTED TO KEEP O2 OFF. DENIES ANY SOB/CP/PRESSURE AT THIS TIME. NO EDEMA NOTED WITH IV SL TO LFA. ABD SOFT, NONTENDER WITH ACTIVE BS X4. DENIES ANY N/V AT THIS TIME. AMBULATORY, VOIDING FREELY. CALL LIGHT IN REACH NEEDS ATTENDED TO.
[2019-07-11 07:44] VITALS: BP 116/72
[2019-07-11] MEDS ORDERED: LEVAQUIN500 M1 PO (10:15)
[2019-07-11] MEDS ORDERED: PRE20 PO (10:16)
[2019-07-11] MEDS ORDERED: SINGULAIR10 MG PO (10:16)
[2019-07-11] MEDS ORDERED: ADV250/50 INH (10:22)
[2019-07-11] MEDS ORDERED: PROAIR HFA8.5 GM IH (10:22)
[2019-07-11 11:55] VITALS: BP 116/72
[2019-07-11 12:13] VITALS: BP 125/73
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
--- NOTE | 2019-07-11 13:57 | NUR ---
DISCHARGE INSTRUCTIONS GIVEN TO PT INCLUDING MEDICAL FOLLOW-UP W/ PCP. NEW PRESCRIPTION PROVIDED. ADDITIONAL EDUCATIONAL MATERIALS REGARDING NEW MEDICATIONS PROVIDED. PT VERBALIZES UNDERSTANDING BUT PT WAS OBSERVED NOT TO BE ATTENTIVE ON THE DISCHARGE INSTRUCTIONS. PT ABLE TO AMBULATE, NO SOB OR PAIN NOTED. PT WHEELED DOWN BY KAYY HAYS, PT DISCHARGED.
== END 2019-07-11 14:00 | disposition home or self-care (01) | DRG 192 ==
LOC: ED 02:25 → MU 03:03 → DU 03:03 → MU 04:05 → DU 04:08 → MU 07-07 16:05
PROVIDERS: Emergency Medicine; Internal Medicine; ADMIT Internal Medicine
DX: J44.1 Chronic obstructive pulmonary disease with (acute) exacerbation (principal); E83.51 Hypocalcemia; I45.81 Long QT syndrome; I49.3 Ventricular premature depolarization; E78.5 Hyperlipidemia, unspecified; F17.210 Nicotine dependence, cigarettes, uncomplicated; I10 Essential (primary) hypertension; F10.929 Alcohol use, unspecified with intoxication, unspecified; Y90.9 Presence of alcohol in blood, level not specified; Z59.0 Homelessness; Z68.26 Body mass index [BMI] 26.0-26.9, adult; Z88.5 Allergy status to narcotic agent; Z71.6 Tobacco abuse counseling; Z71.41 Alcohol abuse counseling and surveillance of alcoholic; Z79.899 Other long term (current) drug therapy
CPT/HCPCS: 83880; 94150; 97116-GP; G0378; G0480; J0456; J1956; J2920; J3475; J7030; J7040; J7050; J7512; J7613; J7644; Q0092